=== PATIENT | male | born 1995 | race American Indian/Alaskan Native ===

== ENCOUNTER 2018-09-01 09:04 | Emergency (ER) | payer SELFPAY ==
--- NOTE | 2018-09-01 09:15 | Event Note ---
ED Screening Note ED Screening Note: FLAT DEPRESSED WILL NOT SPEAK NODS YES NO DENIES DRUGS CIG POS NO ETOH NO MH HX HERE W MOTHER DID NOT FINISH HS AND NO JOB This initial assessment/diagnostic orders/clinical plan/treatment(s) is/are subject to change based on patients health status, clinical progression and re- assessment by fellow clinical providers in the ED. Further treatment and workup at subsequent clinical providers discretion. Patient/guardian urged not to elope from the ED as their condition may be serious if not clinically assessed and managed. Initial orders include:
[2018-09-01 09:36] LABS: Basophils % (Auto) 0.6 % (0.0-1.8); Eosinophils # (Auto) 0.1 K/mm3 (0.0-0.4); Eosinophils % (Auto) 2.5 % (0.0-4.3); Hematocrit 40.5 % (35.5-45.6); Hemoglobin 13.8 gm/dl (11.8-15.2); Lymphocytes # (Auto) 1.9 K/mm3 (1.2-5.4); Mean Corpuscular HGB Conc 34 % (32-34); Mean Corpuscular Volume 93 fl (84-94); Monocytes # (Auto) 0.3 K/mm3 (0.0-0.8); Monocytes % (Auto) 7.5 % (0.0-7.3); Platelet Count 196 K/mm3 (140-440); Red Blood Count 4.34 M/mm3 (3.65-5.03)
--- NOTE | 2018-09-01 09:42 | Emergency Department Report ---
ED Psych HPI - General Chief Complaint: Psych Stated Complaint: EVALUATION Time Seen by Provider: 09/01/18 09:12 Source: patient, family Mode of arrival: Ambulatory Limitations: No Limitations - History of Present Illness Initial Comments: Patient is a 23-year-old male that presents emergency room with complaints of needing a mental health evaluation. Mother is at bedside and states the patient has been very isolated for 6 months. Mother states minimally interactive with friends and family. Mother states that he doesn't talk too much. She won't speak but will answer questions of yes no Patient states he is depressed. Patient denies anxiety. Patient denies hallucinations. Patient denies homicidal ideation. Patient states he has suicidal thoughts of cutting his wrists. Patient states his thoughts started approximately 2 weeks ago and are worsening. Patient states possibly becoming more frequent. -: Gradual Associated Psychiatric Symptoms: depression, suicidal ideation History of same: No Quality: constant Improves With: none Worsens With: none Associated Symptoms: denies: confusion, headache, shortness of breath, nausea, vomiting, syncope, insomnia If Self Harm: admits thoughts of, has plan - Related Data Allergies Allergy/AdvReac Type Severity Reaction Status Date / Time No Known Allergies Allergy Unverified 09/01/18 09:06 ED Review of Systems ROS: Stated complaint: EVALUATION Other details as noted in HPI Constitutional: denies: chills, fever Eyes: denies: eye pain, eye discharge, vision change ENT: denies: ear pain, throat pain Respiratory: denies: cough, shortness of breath, wheezing Cardiovascular: denies: chest pain, palpitations Endocrine: no symptoms reported Gastrointestinal: denies: abdominal pain, nausea, diarrhea Genitourinary: denies: urgency, dysuria Musculoskeletal: denies: back pain, joint swelling, arthralgia Skin: denies: rash, lesions Neurological: denies: headache, weakness, paresthesias Psychiatric: depression, suicidal thoughts. denies: anxiety, auditory hallucinations, visual hallucinations, homicidal thoughts Hematological/Lymphatic: denies: easy bleeding, easy bruising ED Past Medical Hx - Past Medical History Previous Medical History?: No - Surgical History Past Surgical History?: No - Family History Family history: no significant - Social History Smoking Status: Current Every Day Smoker Substance Use Type: Marijuana ED Physical Exam - General Limitations: No Limitations General appearance: alert, in no apparent distress - Head Head exam: Present: atraumatic, normocephalic - Eye Eye exam: Present: normal appearance - ENT ENT exam: Present: mucous membranes moist - Neck Neck exam: Present: normal inspection - Respiratory Respiratory exam: Present: normal lung sounds bilaterally. Absent: respiratory distress - Cardiovascular Cardiovascular Exam: Present: regular rate, normal rhythm. Absent: systolic murmur, diastolic murmur, rubs, gallop - GI/Abdominal GI/Abdominal exam: Present: soft, normal bowel sounds - Rectal Rectal exam: Present: deferred - Extremities Exam Extremities exam: Present: normal inspection - Back Exam Back exam: Present: normal inspection - Neurological Exam Neurological exam: Present: alert, oriented X3 - Psychiatric Psychiatric exam: Present: depressed, suicidal ideation - Expanded Psychiatric Exam Expanded Focused psych exam: Present: mute - Skin Skin exam: Present: warm, dry, intact, normal color. Absent: rash ED Course Vital Signs 09/01/18 09/01/18 09:10 15:17 Temperature 97.1 F L 98.8 F Pulse Rate 57 L 52 L Respiratory 18 18 Rate Blood Pressure 111/72 Blood Pressure 116/82 [Left] O2 Sat by Pulse 98 99 Oximetry - Reevaluation(s) Reevaluation #1: Patient is medically clear. Patient will remain on a 1013. Patient was placed on Center immediately upon assessment. Discussed all results with patient. Patient remained in the ER Patient agrees to plan of care. 09/01/18 15:38 ED Medical Decision Making - Lab Data Result diagrams: 09/01/18 09:18 09/01/18 09:18 - Medical Decision Making Patient is a 23-year-old male that presents emergency room for mental evaluation. Patient's mother brought him in to be evaluated. Patient admitted to suicidal ideations and had a plan to cut his wrists. Patient had labs done and were all negative. Patient is medically clear. Patient will remain on a 1013 and in the ER until accept into appropriate psychiatric facility. - Differential Diagnosis suicidal ideations. Depression. Critical care attestation.: If time is entered above; I have spent that time in minutes in the direct care of this critically ill patient, excluding procedure time. ED Disposition Clinical Impression: Suicidal ideations Depressed Qualifiers: Depression Type: unspecified Qualified Code(s): F32.9 - Major depressive disorder, single episode, unspecified Disposition: [id number]/[id number] PSY HOSP/PSY UNIT Is pt being admited?: No Does the pt Need Aspirin: No Condition: Stable Additional Instructions: Patient is medically cleared Referrals: GOLDY HILARIO MD [Primary Care Provider] - 3-5 Days Time of Disposition: 15:39
[2018-09-01 09:53] LABS: Alanine Aminotransferase 13 units/L (7-56); Albumin 4.3 g/dL (3.9-5); BUN/Creatinine Ratio 16; Blood Urea Nitrogen 16 mg/dL (9-20); Calcium 9.1 mg/dL (8.4-10.2); Hemolysis Index 13
[2018-09-01 21:58] LABS: Bilirubin,Urine NEG (Negative); Blood,Urine NEG (Negative); Color,Urine Yellow (Yellow); Mucus,Urine 3+ /HPF; Protein,Urine <15 mg/dL mg/dL (Negative); Urobilinogen,Urine < 2.0 mg/dL (<2.0)
[2018-09-01 22:28] LABS: Amphetamine Screen,Urine PRESUMPTIVE NEGATIVE; Benzodiazepines Screen,Urine PRESUMPTIVE NEGATIVE; Cocaine Screen,Urine PRESUMPTIVE NEGATIVE; Methadone Screen,Urine PRESUMPTIVE NEGATIVE; Opiate Screen,Urine PRESUMPTIVE NEGATIVE
[2018-09-01 23:13] LABS: Cannabinoid Screen,Urine PRESUMPTIVE POSITIVE
--- NOTE | 2018-09-02 14:43 | Consultation ---
History of Present Illness - Reason for Consult Consult date: 09/02/18 Reason for consult: psychiatric evaluation - Chief Complaint Chief complaint: not speaking - History of Present Psychiatric Illness 23 year old AA/M who presents to the emergency room for issues related to depression and isolative behaviors for 6 months. He did not speak throughout attempt to interview. He would nod/shake his head, and use hand gestures. His record was reviewed. According to the record, his mother told doctor he needed a mental health evaluation. The record indicates he has been isolated for the past 6 months and has been minimally interactive with his family. He presents with flat affect, not speaking, and acknowleged depression. He shook his head in response to questions asking about perceptual disturbances. He is eating. Accor janice to the record, he indicated having suicidal ideations with a plan to cut his wrists. He acknowledged this and denies it changed. Medications and Allergies Allergies Allergy/AdvReac Type Severity Reaction Status Date / Time No Known Allergies Allergy Unverified 09/01/18 09:06 Past psychiatric history - Past Medical History Past Medical History: No medical history (unable to assess) Past Surgical History: No surgical history (unable to assess) - past Psychiatric treatment and history psychiatric treatment history: unable to assess - Social History Social history: lives with family Mental Status Exam - Vital signs Last Vital Signs Temp 98.6 F 09/02/18 13:00 Pulse 65 09/02/18 13:00 Resp 18 09/02/18 13:00 BP 102/75 09/02/18 13:00 Pulse Ox 99 09/02/18 13:00 - Exam Orientation: place, person Affect: flat Thought content: other (unable to assess) Perceptions: other (unable to assess) Speech: minimal response Concentration: other (unable to assess) Motor activity: normal Level of consciousness: alert Interaction: other (interacts with gestures of hands/head nodding/shaking) Results Result Diagrams: 09/01/18 09:18 09/01/18 09:18 Abnormal lab results 09/01/18 Range/Units 21:38 Ur Specific [place] 1.034 H (1.003-1.030) All other labs normal. Assessment and Plan Assessment and plan: Impression: psychosis unspecified differential dx: substance induced psychotic disorder schizophreniform disorder, MDD with psychosis UDS positive for thc He nodded his head in agreement to being agreeable medication for mood/mental state. Recommendations: continue 1013 start zyprexa 5mg hs. risks/benefitis discussed, including risks of eps/metabolic effects disposition: inpatient psychiatric facility staffed with Dr. Mosquera
--- NOTE | 2018-09-03 18:54 | Progress Note ---
Subjective - Reason for Consult Consult date: 09/03/18 Reason for consult: follow up - Chief Complaint Chief complaint: "ok" 23 year old AA/M who presents to the emergency room for issues related to depression and isolative behaviors for 6 months. He did not speak throughout most of the attempt interview. He would nod/shake his head, and use hand gestures. His record was reviewed. He presents with flat affect, not speaking, and acknowleged depression. He shook his head in response to questions asking about perceptual disturbances. He is eating. According to the record, he indicated having suicidal ideations with a plan to cut his wrists. He ackno wledged this and denies it changed. Nurse Areli reports he had a conversation with her and then talked with his mother. Reportedly his mother yelled at him to talk and not to be run over. He took zyprexa last night and nodded in agreement to continue it. Orientation: place, person Affect: flat Thought content: other (unable to assess) Perceptions: other (unable to assess) Speech: minimal response Concentration: other (unable to assess) Motor activity: normal Level of consciousness: alert Interaction: other (interacts with gestures of hands/head nodding/shaking) Mental Status Exam - Vital signs Last Vital Signs Temp 98.1 F 09/03/18 13:51 Pulse 104 H 09/03/18 13:51 Resp 16 09/03/18 13:51 BP 121/80 09/03/18 13:51 Pulse Ox 99 09/03/18 13:51 Assessment and Plan Impression: psychosis unspecified differential dx: substance induced psychotic disorder schizophreniform disorder, MDD with psychosis UDS positive for thc He nodded his head in agreement to being agreeable medication for mood/mental state. Recommendations: continue 1013 continue zyprexa 5mg hs. risks/benefitis discussed, including risks of eps/metabolic effects disposition: inpatient psychiatric facility staffed with Dr. Mosquera
--- NOTE | 2018-09-04 12:49 | Progress Note ---
Subjective - Reason for Consult Consult date: 09/04/18 Reason for consult: Psychiatry Follow-up - Chief Complaint Chief complaint: "What" 23 year old AA/M who presents to the emergency room for issues related to depression and isolative behaviors for 6 months. Today the patient was calm, but somewhat preoccupied during the assessment. He didn't answer questions asked of him other than something about his mother that wasn't relevant to the discussion. He appeared to be responding to some type of stimuli throughout the interview. No gestures of SI/HI's. No indications of side effects of his medication. Mental Status Exam - Vital signs Last Vital Signs Temp 97.7 F 09/04/18 10:30 Pulse 66 09/04/18 10:30 Resp 18 09/04/18 10:30 BP 136/90 09/04/18 10:30 Pulse Ox 100 09/04/18 10:30 - Exam Narrative exam: Unable to complete the MSE because the patient's condition. Assessment and Plan Impression: Unspecified Psychosis. Cannabis Use DO. Today the patient was calm, but somewhat preoccupied during the assessment. DDx: Substance Induced Psychosis, Bipolar DO, MDD with psychosis, Recommendation/Plan: Continue 1013 and Zyprexa 5 mg PO HS for psychosis. Attempted to discussed possible metabolic side effects Zyprexa with the patient. dispo: The patient was referred to inpatient psy services. Will staff with Dr Jean Mosquera.
--- NOTE | 2018-09-05 14:26 | Progress Note ---
Subjective - Reason for Consult Consult date: 09/05/18 Reason for consult: Psychiatry Follow-up - Chief Complaint Chief complaint: "James" 23 year old AA/M who presents to the emergency room for issues related to depression and isolative behaviors for 6 months. Today the patient was calm, but still preoccupied during the assessment. He was more willing to answer some questions asked of him, but most of the answers were not logical. He pause for several seconds before he will attempt to answer questions. No gestures of SI/HI's. No indications of side effects of his medication. Mental Status Exam - Vital signs Last Vital Signs Temp 98.1 F 09/05/18 08:33 Pulse 76 09/05/18 08:33 Resp 18 09/05/18 08:33 BP 113/79 09/05/18 08:33 Pulse Ox 99 09/05/18 08:33 - Exam Narrative exam: MSE: Appearance: calm Behavior: poor eye contact Speech: regular rate and tone Mood: preoccupied Affect: flat Thought Process: disorganized Thought Content: denies SI/HI's and AVH's Motor Activity: sitting up in the bed Cognition: A/O x 3 Insight: poor Judgment: poor Assessment and Plan Impression: Unspecified Psychosis. Cannabis Use DO. Today the patient was calm, but still preoccupied during the assessment. DDx: Substance Induced Psychosis, Bipolar DO, MDD with psychosis, Recommendation/Plan: Continue 1013 and modify Zyprexa to 5 mg PO BID for psychosis. Attempted to discussed possible metabolic side effects Zyprexa with the patient. dispo: The patient was accepted at [facility] for inpatient psy services pending transport time. Staffed with Dr Jean Mosquera.
[2018-09-06 10:55] VITALS: BP 128/86
== END 2018-09-06 15:59 ==
LOC: EEVIPCON 09:04 → ED 09:04
DX: F32.9 Major depressive disorder, single episode, unspecified (principal); F12.10 Cannabis abuse, uncomplicated; F17.200 Nicotine dependence, unspecified, uncomplicated
CPT/HCPCS: 36415; 80053; 80307; 81001; 84443; 85025; 99285; G0480; 80320